=== PATIENT | male | born 1965 | race Caucasian/White ===

== ENCOUNTER → 2017-10-05 10:02 | Outpatient (CLI) | payer OTHER, SELFPAY ==
[2017-10-05 11:38] LABS: PSA,Total - Annual Screen 1.47 ng/mL (0.00-4.00)
== END ==
PROVIDERS: Family Provider Family Medicine; PCP Family Medicine; Visit Provider Nurse Practitioner Adult Health
DX: Z12.5 Encounter for screening for malignant neoplasm of prostate (principal)
CPT/HCPCS: 36415; 84153; G0103

== ENCOUNTER → 2017-10-25 17:32 | Outpatient (CLI) | payer OTHER, SELFPAY ==
--- NOTE | 2017-10-25 17:34 | CT_ITS ---
STUDY: CT ABDOMEN AND PELVIS WITHOUT CONTRAST REASON FOR EXAM: Male, 52 years old. Microhematuria RADIATION DOSAGE (If Supplied By Facility): CTDIvol = ( 14.68 ) mGy, DLP = ( 812.04 ) mGycm TECHNIQUE: Transaxial images were obtained from the dome of the diaphragm to the symphysis pubis without oral contrast, and without intravenous contrast. Sagittal and coronal images were reconstructed. Individualized dose optimization techniques were used for this CT. COMPARISON: February 05, 2017. FINDINGS: The visualized lung bases are unremarkable. The visualized portions of the heart are within normal limits. Normal liver. Normal gallbladder and extrahepatic biliary system. Normal spleen. Normal pancreas. Normal bilateral adrenal glands. Normal right kidney. Probable cortical cyst lesion measuring 1 cm with rim calcification is noted in the left kidney. No renal stones or hydronephrosis bilaterally. Normal visualized stomach. Normal small intestine. Mild diverticulosis of the colon. The appendix is visualized and appears normal. Calcified abdominal aorta. Normal inferior vena cava. Subcentimeter nodes in the retroperitoneum. Normal urinary bladder. The prostate is 4.6 x 5.8 cm. Normal abdominal wall. Normal osseous structures. CT/Abdomen/Pelvis without Cont IMPRESSION: Slightly prominent prostate. No renal stones or hydronephrosis bilaterally. Probable left renal cortical cystic lesion with peripheral calcification. Colonic diverticulosis. Electronically Signed: Miquel Candelario DO at 19:50 EDT Tel [phone], Service support ,
== END ==
PROVIDERS: Family Provider Family Medicine; PCP Family Medicine; Visit Provider Urology
DX: R31.9 Hematuria, unspecified (principal)
CPT/HCPCS: 74176

== ENCOUNTER → 2017-10-31 16:23 | Outpatient (CLI) | payer OTHER, SELFPAY ==
[2017-10-31 17:58] LABS: Hemoglobin 14.8 g/dl (13.0-16.5); Red Blood Count 4.78 M/mm3 (4.6-6.2); White Blood Count 6.6 K/mm3 (4.4-11.0)
[2017-10-31 17:59] LABS: Absolute Lymphocyte Count 1.65 X10^3/ul (0.83-4.51); Absolute Neutrophil Count 4.1 X10^3/uL (2.0-7.7); Basophil% 0.3 % (0-1); Eosinophil# 0.09 X10^3/uL; Eosinophils% 1.4 % (0-5); Hematocrit 42.7 % (40-54); Lymphocyte # 1.65 X10^3/ul (4.0); Lymphocyte % 25.1 % (19-41); Mean Corp Hgb Conc 34.7 g/gl (32-36); Mean Corpuscular Volume 89.3 fL (80-94); Mean Platelet Vol. 11.1 fl (6.2-12.0); Monocyte# 0.74 X10^3/uL; Monocyte% 11.2 % (0-10); Neutrophil # 4.07 X10^3/uL (2.7-7.7); Neutrophil % 61.8 % (47-70); POSITIVE COUNT NO; POSITIVE DIFFERENTIAL NO; POSITIVE MORPHOLOGY NO; Platelet Count 228 K/mm3 (150-450); RBC Distribution Width CV 12.6 % (11.6-14.6)
[2017-10-31 18:00] LABS: Basophil# 0.02 X10^3/uL
== END ==
PROVIDERS: Family Provider Family Medicine; PCP Family Medicine; Visit Provider Ophthalmology
DX: H35.61 Retinal hemorrhage, right eye (principal); E03.9 Hypothyroidism, unspecified
CPT/HCPCS: 36415; 85025

== ENCOUNTER → 2017-12-02 16:35 | Outpatient (CLI) | payer OTHER, SELFPAY ==
[2017-12-02 18:05] LABS: AST(SGOT) 15 U/L (15-37); Alanine Aminotransfer ALT/SGPT 25 U/L (16-61); Albumin, Serum 3.9 g/dL (3.2-5.0); Alkaline Phosphatase 65 U/L (45-117); Anion Gap 9 (5-15); BUN 21 mg/dL (7-18); BUN/Creat Ratio 18.4 RATIO (10-20); Calcium,Total 8.8 mg/dL (8.5-10.1); Chloride 104 mmol/L (98-107); Creatinine, Serum 1.14 mg/dL (0.70-1.30); EST Glomerular Filtration Rate 72 mL/min (>60); Est Glom Filt Rate - Afr Amer 87 mL/min (>60); Free T3 3.6 pg/mL (2.18-3.98); Glucose 103 mg/dL (74-106); Potassium 3.9 mmol/L (3.5-5.1); Protein, Total 7.9 g/dL (6.4-8.2); Sodium Level 140 mmol/L (136-145); T4 Free Direct 0.53 ng/dL (0.76-1.46)
[2017-12-02 18:30] LABS: Vitamin B12 772 pg/mL (211-911)
[2017-12-05 16:10] LABS: Endomysial Antibody IgA Negative (Negative)
[2017-12-06 12:29] LABS: Immunoglobulin A 218 mg/dL (90-386); t-Transglutaminase IgA <2 U/mL (0-3)
== END ==
PROVIDERS: Family Provider Family Medicine; PCP Family Medicine; Visit Provider Nurse Practitioner
DX: R53.82 Chronic fatigue, unspecified (principal); R53.81 Other malaise
CPT/HCPCS: 36415; 80053; 82607; 82784; 83516; 84439; 84443; 84481; 86255

== ENCOUNTER → 2017-12-26 15:43 | Outpatient (CLI) | payer OTHER, SELFPAY ==
--- NOTE | 2017-12-26 15:43 | DT_ITS ---
This patient was seen during an EMR downtime December 19, 2017 - December 26, 2017. This patient may have a combination of paper and electronic documentation or all paper documentation. All documentation is viewable within the e-chart portion of [employer] for each patient visit.
[2017-12-26 16:39] LABS: Absolute Lymphocyte Count 1.46 X10^3/ul (0.83-4.51); Absolute Neutrophil Count 3.7 X10^3/uL (2.0-7.7); Basophil# 0.03 X10^3/uL; Basophil% 0.5 % (0-1); Eosinophil# 0.05 X10^3/uL; Eosinophils% 0.9 % (0-5); Hematocrit 40.8 % (40-54); Lymphocyte # 1.46 X10^3/ul (4.0); Lymphocyte % 25.2 % (19-41); Mean Corp Hgb Conc 34.3 g/gl (32-36); Mean Corpuscular Hgb 30.6 pg (27.0-32.0); Mean Corpuscular Volume 89.1 fL (80-94); Mean Platelet Vol. 11.3 fl (6.2-12.0); Monocyte# 0.53 X10^3/uL; Monocyte% 9.2 % (0-10); Neutrophil # 3.71 X10^3/uL (2.7-7.7); Platelet Count 230 K/mm3 (150-450); RBC Distribution Width CV 12.9 % (11.6-14.6); RBC Distribution Width SD 41.6 fl (35.1-43.9); Red Blood Count 4.58 M/mm3 (4.6-6.2); White Blood Count 5.8 K/mm3 (4.4-11.0)
[2017-12-26 16:43] LABS: POSITIVE COUNT NO; POSITIVE DIFFERENTIAL NO; POSITIVE MORPHOLOGY NO
[2017-12-26 16:44] LABS: Erythrocyte Sedimentation Rate 18 mm/hr (0-20)
[2017-12-26 17:42] LABS: AST(SGOT) 15 U/L (15-37); Alanine Aminotransfer ALT/SGPT 23 U/L (16-61); Albumin, Serum 3.8 g/dL (3.2-5.0); Alkaline Phosphatase 60 U/L (45-117); Anion Gap 8 (5-15); BUN 22 mg/dL (7-18); BUN/Creat Ratio 18.6 RATIO (10-20); Bilirubin, Direct 0.08 mg/dL (0.00-0.30); CRP 4.45 mg/L (0.0-3.0); Calcium,Total 8.7 mg/dL (8.5-10.1); Chloride 107 mmol/L (98-107); Creatinine, Serum 1.18 mg/dL (0.70-1.30); EST Glomerular Filtration Rate 69 mL/min (>60); Est Glom Filt Rate - Afr Amer 83 mL/min (>60); Ferritin 105 ng/mL (26-388); Globulin 3.7 g/dL (2.2-4.2); Glucose 95 mg/dL (74-106); Iron 56 ug/dL (65-175); Potassium 3.8 mmol/L (3.5-5.1); Protein, Total 7.5 g/dL (6.4-8.2); Rheumatoid Factor < 10.0 IU/mL (<15); Sodium Level 142 mmol/L (136-145); Uric Acid 4.8 mg/dL (3.5-7.2)
[2017-12-26 17:48] LABS: HIV - WCH Non-Reactive (Nonreactive); Vitamin B12 606 pg/mL (211-911)
[2017-12-30 18:11] LABS: ANTINUCLEAR ANTIBODIES DIRECT Negative (Negative)
[2018-01-02 20:09] LABS: HEPATITIS B SURFACE AG Negative (Negative)
[2018-01-03 15:35] LABS: Hep B Surface Antibodies Reactive (.); Hep C Antibodies <0.1 s/co ratio (0.0-0.9); Hepatitis B Core Ab Total Negative (Negative)
== END ==
PROVIDERS: Family Provider Family Medicine; PCP Family Medicine; Visit Provider Dermatology
DX: M25.50 Pain in unspecified joint (principal); R53.83 Other fatigue; Z79.899 Other long term (current) drug therapy
CPT/HCPCS: 36415; 80053; 82175; 82248; 82607; 82728; 82746; 83540; 83655; 83825; 84550; 85025; 85652; 86038; 86140; 86431; 86480; 86703; 86704; 86706; 86803; 87340

== ENCOUNTER → 2018-06-19 06:59 | Outpatient (CLI) | payer OTHER, SELFPAY ==
[2018-06-19 08:18] LABS: Glucose GTT-30 minutes 137 mg/dL (110-170)
[2018-06-19 08:18] LABS: Glucose GTT- Fasting 95 mg/dL (74-106)
[2018-06-19 09:45] LABS: Glucose GTT- 1 Hour 90 mg/dL (120-170)
[2018-06-19 09:54] LABS: Glucose GTT- 2 Hour 80 mg/dL (70-120)
[2018-06-19 11:16] LABS: Glucose GTT- 3 Hour 83 mg/dL (74-106)
[2018-06-19 12:50] LABS: Glucose GTT- 4 Hour 87 mg/dL (74-106)
[2018-06-19 12:50] LABS: Glucose GTT- 5 Hour 95 mg/dL (74-106)
--- OUTSIDE RECORDS SUMMARY | 2018-08-12 04:58 | XMS RPT_ITS ---
:1965 Author Organization OHIP Support Name Relationship Address Phone CHRIS, DEIRDRE Unavailable [address] + [place] [address] BODNARIK, GUSTAVO Unavailable [address] + [place] [address] TRICOBD Unavailable [address] + [place] [address] BODNARIK, DEIRDRE Unavailable [address] + [place] [address] BODNARIK, GUSTAVO Unavailable [address] + [place] [address] [employer] Unavailable [address] + [place] [address] BODNARIK, DEIRDRE Unavailable [address] + [place] [address] BODNARIK, GUSTAVO Unavailable [address] + [place] [address] [employer] Unavailable [address] + [place] [address] BODNARIK, DEIRDRE Unavailable [address] + [place] [address] BODNARIK, GUSTAVO Unavailable [address] + [place] [address] [employer]ICO[employer] Unavailable [address] + [place] [address] BODNARIK, DEIRDRE Unavailable [address] + [place] [address] BODNARIK, GUSTAVO Unavailable [address] + [place] [address] TRICO[facility] Unavailable [address] + [place] [address] BODNARIK, DEIRDRE Unavailable [address] + [place] [address] GUSTAVO PEREZ Unavailable [address] + [place] [address] [employer] Unavailable [address] + [place] [address] TATA TEMPLE Unavailable [address] + [place] [address] [employer]ICO[employer] Unavailable [address] + [place] [address] TATA TEMPLE Unavailable [address] + [place] [address] TRICO[facility] Unavailable [address] + [place] [address] Care Team Providers Name Role Phone Sameera Phillips Attending Unavailable Sameera Phillips Referring Unavailable [facility] Unavailable Roberth Amezquita Attending Unavailable [facility] Unavailable Lisset Benjamin Attending Unavailable Lisset Benjamin Referring Unavailable [place] Unavailable Angeli Ocasio [employer]ADDLE BUG DRIVER-C Attending Unavailable Anca, Christcodie Referring Unavailable [facility] Unavailable Angeli Ocasio [employer]ADDLE BUG DRIVER-C Attending Unavailable Angeli Ocasio STRADDLE BUG DRIVER-C Referring Unavailable [facility] Unavailable Martínez Benjamin Attending Unavailable Martínez Benjamin Referring Unavailable [place] Unavailable Matthew March Attending Unavailable [place] Unavailable Yaw Marcher Attending Unavailable Anca, Christopher Referring Unavailable [facility] Unavailable PROBLEMS PROBLEMS DATE TYPE CONDITION / CODE ATTENDING STATUS SOURCE 01/12/2018 Unknown M25.50 - Pain in Martínez Benjamin Active [place] unspecified joint Community / M25.50(ICD-10) Hospital Repository 01/12/2018 Unknown 719.49 - Pain in Marcia Martínez Active [facility] joint, multiple Community sites / Hospital 719.49(ICD-9) Repository 01/12/2018 Unknown R53.83 - Other Martínez Benjamin Active [place] fatigue / Community R53.83(ICD-10) Hospital Repository 01/12/2018 Unknown 780.79 - Other Martínez Benjamin Active [place] malaise and Community fatigue / Hospital 780.79(ICD-9) Repository 12/02/2017 Unknown R53.82 - Chronic Angeli Ocasio Active [place] fatigue, [employer] DR[employer]-C Community unspecified / Hospital R53.82(ICD-10) Repository 12/02/2017 Unknown R53.81 - Other Angeli Ocasio Active [facility] malaise / [employer] DRIVER-C Community R53.81(ICD-10) Hospital Repository 10/31/2017 Unknown H35.61 - Retinal Lisset Benjamin Active [facility] hemorrhage, right [facility] eye / Hospital H35.61(ICD-10) Repository 10/25/2017 Unknown R31.9 - AlirioRoberth posada Active [facility] Hematuria, Wood [facility] unspecified / Hospital R31.9(ICD-10) Repository 10/05/2017 Unknown Z12.5 - Encounter Sameera Phillips Active [place] for screening for M [facility] Hospital neoplasm of Repository prostate / Z12.5(ICD-10) PROCEDURES PROCEDURES No Procedure Records FoundRESULTS RESULTS 5 HR GLUCOSE TOLERANCE Collected: 06/19/2018 Status: F Source: [place] TEST 7:15 AM [facility] REPOSITORY Order Comment: Is Patient Fasting? Y TYPE CODE TESTS RESULT OUT OF RANGE REFERENCE UNITS LAB L501.0520 74-106 mg/dL Normal GLU 95 GTT-FASTING Result Comment: GLUCOSE TOLERANCE TEST Reference Interval Non- Adults Fasting 74 - 106 30 minutes 110 - 170 1 hour 120 - 170 2 hour 74 - 120 3 hour 74 - 106 4 hour 74 - 106 5 hour 74 - 106 LAB L501.0630 110-170 mg/dL Normal GLU GTT-30 min. 137 LAB L501.0540 120-170 mg/dL Low GLU GTT-1 HOUR 90 LAB L501.0550 70-120 mg/dL Normal GLU GTT-2 HOUR 80 LAB L501.0560 74-106 mg/dL Normal GLU GTT-3 HOUR 83 LAB L501.0570 74-106 mg/dL Normal GLU GTT-4 HOUR 87 LAB L501.0580 74-106 mg/dL Normal GLU GTT-5 HOUR 95 Performed By: #### L500.4900 #### [facility] [place], [address] OFFICE VISIT Observed: 02/22/2018 Status: UNK Source: [place] 10:38 AM [facility] REPOSITORY Chief Complaint Endocrine consult - Thyroid - Self Referred History of Present Illness 52-year-old self referred for evaluation of hypothyroidism. Patient states he was diagnosed with hypothyroidism 2 years ago and was put on liothyronine 25 g. He has never been on Synthroid or levothyrox ine. Dose was discontinued approximately 3 months ago when he saw a nurse practitioner for an patient assistant and was told that he was on too much medicine. Over this time. Over the last 2 years and joel laila he has battled with fatigue and sleep disturbance and on and off leg and joint pains. He does have sleep apnea and is compliant with his C Pap. He has a long history of hypothyroidism and multiple f emale family members. He also himself has psoriasis but is never seen a mold carrier. He is also been diagnosed with Lyme disease twice in his life and both times was incapacitated with fatigue. Proxi reyes one year ago he was in the hospital for infection and had elevated thyroid levels at that time as well as atrial fibrillation. His dose was not decreased.He denies any chest pain, shortness of jun ath, nausea, vomiting, diarrhea, constipation, fevers or chills. Review of Systems Comprehensive review systems otherwise negative Active Problems Depression (311) (F32.9) Hypothyroidism (244.9) (E03.9) Psoriasis (696.1) (L40.9) Past Medical History History of Mononucleosis (075) (B27.90) Surgical History History of Inguinal Hernia Repair History of Knee Surgery Social History Never a smoker Never smoker No alcohol use Single Allergies Amoxicillin CAPS Recorded By: Leona Bautista; 02/22/2018 8:06:20 AM Current Meds Fluticasone Propionate 50 MCG/ACT Nasal Suspension; Therapy: [id number] to Recorded Dispense: 30 Days ; #:16 SUSP; Refill: 0; PHILIP = N; Record; Last Updated By: Leona Bautista; 02/22/2018 7:53:16 AM Tremfya 100 MG/ML Subcutaneous Solution Prefilled Syringe; INJECT 100MG UNDER THE SKIN AT WEEK 0, WEEK 4, AND EVERY 8 WEEKS THERE; Therapy: [id number] to Recorded Rx By: MARCIA; Dispense: 56 Days ; #:1 SOSY; Refill: 0; PHILIP = N; Record; Last Updated By: Leona Bautista; 02/22/2018 7:53:16 AM Vitals Vital Signs Recorded: 22Feb2018 08:07AM Hopwioectht17.4 F Heart Rate74 Owwtjhqe596 Hekanlqne89 Height6 ft 2 in Ejgbuu625 lb 4 oz BMI Rxsiysykmp01.13 BSA Calculated2.39 Physical Exam CONSTITUTIONAL: Overweight male in no acute distress HEENT: Moist mucus membranes. Eyes: no proptosis, no lid lag, no lid retraction NECK: Normal thyroid gland. No cervical lymphadenopathy CHEST: Clear to auscultation bilaterally HEART: Regular rate and rhythm. No murmurs, rubs, or gallops ABDOMEN: Benign SKIN: Normal EXT: No clubbing, cyanosis, edema NEUROLOGIC: Normal reflexes bilaterally, no tremor Diagnoses/Problems Hypothyroidism (244.9) (E03.9) Orders Hypothyroidism Antithyroid Perox. Ab; Source:Blood (D); Status:Active; Requested for:22Feb2018; Perform:Lab Services - Lab To Draw (Blood Test); Due:23May2018;Ordered; For:Hypothyroidism; Ordered By:Nelida Villeda; T3 - Free Triiodothyronine, Serum; Source:Blood (D); Status:Active; Requested for:22Feb2018; Perform:Lab Services - Lab To Draw (Blood Test); Due:23May2018;Ordered; For:Hypothyroidism; Ordered By:Nelida Villeda; T4 - Free Thyroxine, Serum; Source:Blood (D); Status:Active; Requested for:22Feb2018; Perform:Lab Services - Lab To Draw (Blood Test); Due:23May2018;Ordered; For:Hypothyroidism; Ordered By:Nelida Villeda; TSH - Thyroid Stimulating Hormone, Serum; Source:Blood (D); Status:Active; Requested for:22Feb2018; Perform:Lab Services - Lab To Draw (Blood Test); Due:23May2018;Ordered; For:Hypothyroidism; Ordered By:Nelida Villeda; Provider Impressions 52-year-old here for evaluation of hypothyroidism. Discussed his history in detail. Discussed thyroid replacement and the advantages of using Synthroid or levothyroxine rather than just T3. We will star t over with complete thyroid levels today and the Daniel's antibody. I also recommended seeing a mold carrier and a sleep specialist. I will see him back in 2 months. He is to call with concerns Patient Discussion/Summary Thyroid blood work today Plan based on results Consider seeing a mold carrier and sleep specialist Call with concerns or questions. End of Encounter Meds Fluticasone Propionate 50 MCG/ACT Nasal Suspension; Therapy: 13May2017 to Recorded Tremfya 100 MG/ML Subcutaneous Solution Prefilled Syringe; INJECT 100MG UNDER THE SKIN AT WEEK 0, WEEK 4, AND EVERY 8 WEEKS THERE; Therapy: 06Dec2017 to Recorded Signatures Electronically signed by : Nelida Villeda MD; Feb 22 2018 10:38AM EST (Author) DOWNTIME REPORT Observed: 01/05/2018 Status: F Source: [place] 2:16 PM [facility] REPOSITORY [facility] Medical Records Department [address] [place] [address] Downtime Report MR#: [id number] Acct: [id number] Name: DEYA LAW Loreta Rep #: [id number] : 1965 52 From: [place] PCP: Matthew March MD Status: REG CLI This patient was seen during an EMR downtime December 19, 2017 - December 26, 2017. This patient may have a combination of paper and electronic documentation or all paper documentation. All documentation is viewable within the e-chart portion of [facility] for each patient visit. CBC W/DIFF, AUTOMATED Collected: 12/26/2017 Status: F Source: [place] 3:49 PM [facility] REPOSITORY Order Comment: Order Date: 12/18/17 Order Info: [id number] - SED TYPE CODE TESTS RESULT OUT OF RANGE REFERENCE UNITS LAB L100.1000 4.4-11.0 K/mm3 Normal WBC 5.8 LAB L100.1200 4.6-6.2 M/mm3 Low RBC 4.58 LAB L100.1300 13.0-16.5 g/dl Normal HGB 14.0 LAB L100.1400 40-54 % Normal HCT 40.8 LAB L100.1500 80-94 fL Normal MCV 89.1 LAB L100.1600 27.0-32.0 pg Normal MCH 30.6 LAB L100.1700 32-36 g/gl Normal MCHC 34.3 LAB L100.1810 11.6-14.6 % Normal RDW CV 12.9 LAB L100.1820 35.1-43.9 fl Normal RDW SD 41.6 LAB L100.1900 150-450 K/mm3 Normal PLT 230 LAB L100.2000 6.2-12.0 fl Normal MPV 11.3 LAB L100.2100 47-70 % Normal NEUT% 64.0 LAB L100.2200 19-41 % Normal LY% 25.2 LAB L100.2300 0-10 % Normal MONO% 9.2 LAB L100.2400 0-5 % Normal EO% 0.9 LAB L100.2500 0-1 % Normal BASO% 0.5 LAB L100.2550 0.0-0.9 % Normal IM GRAN % 0.200 Result Comment: IG% - Immature Granulocytes (promyelocytes, myelocytes and metamyelocytes) > 1% indicates that a LEFT SHIFT is Present. LAB L100.2620 2.0-7.7 X10 3/uL Normal Absolute Neut 3.7 LAB L100.2720 0.83-4.51 X10 3/ul Normal Absolute Lymph 1.46 Performed By: #### L100.0100 #### [facility] [address] [place], [place], [id number] ERYTHROCYTE SED RATE Collected: 12/26/2017 Status: F Source: [place] 3:49 PM [facility] REPOSITORY Order Comment: Order Date: 12/18/17 Order Info: 21831-3 - SED TYPE CODE TESTS RESULT OUT OF RANGE REFERENCE UNITS LAB L102.0000 0-20 mm/hr Normal SED RATE 18 Performed By: #### L101.9900, L500.4050, L501.1400, L503.6150, L503.6550, L505.7010, L506.0250, L503.0105, L3890.6005 #### [facility] [address] [place], [address] #### L3100.5475, L3100.0625 #### [facility] (refer to report for specific site) refer to report for address and phone number COMPREHENSIVE METABOLIC Collected: 12/26/2017 Status: F Source: [place] 3:49 PM [facility] REPOSITORY Order Comment: Order Date: 12/18/17 Order Info: [id number] - CMP Order Info: 3084-1 - URIC Order Info: 2498-4 - FE Order Info: 2276-4 - ROM Order Info: 03997-9 - RA Order Info: 2284-8 - FOLS SEND RESULTS TO ALSO Is Patient Taking Vitamins or Folic Acid Supplements? N TYPE CODE TESTS RESULT OUT OF RANGE REFERENCE UNITS LAB L501.0100 74-106 mg/dL Normal GLU 95 Result Comment: Please note revised GLUCOSE reference range effective 2017. LAB L501.1000 7-18 mg/dL High BUN 22 LAB L501.1100 0.70-1.30 mg/dL Normal CREAT,SERUM 1.18 Result Comment: The validity of the calculated GFR AND GFRAA in patients over 70 years has not been determined. Clinical correlation is essential. LAB L501.1110 >60 mL/min Normal EST GFR 69 Result Comment: Non- GFR Calc LAB L501.1115 >60 mL/min Normal EST GFR - AA 83 Result Comment: GFR Calc LAB L501.1300 10-20 RATIO Normal BUN/CRE 18.6 LAB L501.1500 6.4-8.2 g/dL T Normal PROT 7.5 LAB L501.1800 3.2-5.0 g/dL Normal ALB 3.8 LAB L501.1950 2.2-4.2 g/dL Normal GLOB 3.7 LAB L501.2000 0.9-2.4 RATIO Normal A/G 1.0 LAB L501.2200 8.5-10.1 mg/dL CA Normal 8.7 LAB L501.4100 15-37 U/L Normal AST 15 LAB L501.4305 45-117 U/L Normal ALK P 60 LAB L501.4405 16-61 U/L Normal ALT 23 LAB L501.4600 0.20-1.00 mg/dL T Normal BILI 0.40 LAB L501.5300 136-145 mmol/L NA Normal 142 LAB L501.5600 3.5-5.1 mmol/L K Normal 3.8 LAB L501.5900 98-107 mmol/L CL Normal 107 LAB L501.6100 21.0-32.0 mmol/L Normal CO2 27.0 LAB L501.6200 5-15 Normal GAP 8 Performed By: #### L101.9900, L500.4050, L501.1400, L503.6150, L503.6550, L505.7010, L506.0250, L503.0105, L3890.6005 #### [facility] [address] [place], [address] #### L3100.5475, L3100.0625 #### [facility] (refer to report for specific site) refer to report for address and phone number URIC ACID Collected: 12/26/2017 Status: F Source: [place] 3:49 PM [facility] REPOSITORY Order Comment: Order Date: 12/18/17 Order Info: 0786- - CMP Order Info: 3084- - URIC Order Info: [id number] - FE Order Info: 2275-10 - ROM Order Info: 13768-2 - RA Order Info: 2284-8 - FOLS SEND RESULTS TO ALSO Is Patient Taking Vitamins or Folic Acid Supplements? N TYPE CODE TESTS RESULT OUT OF RANGE REFERENCE UNITS LAB L501.1400 3.5-7.2 mg/dL Normal URIC 4.8 Result Comment: The drugs N-Acetylcysteine and Metamizole may falsely depress this assay. Performed By: #### L101.9900, L500.4050, L501.1400, L503.6150, L503.6550, L505.7010, L506.0250, L503.0105, L3890.6005 #### [facility] [address] [place], [place], [id number] #### L3100.5475, L3100.0625 #### [facility] (refer to report for specific site) refer to report for address and phone number IRON Collected: 12/26/2017 Status: F Source: [place] 3:49 PM [facility] REPOSITORY Order Comment: Order Date: 12/18/17 Order Info: [id number] - CMP Order Info: 308- - URIC Order Info: [id number] - FE Order Info: 2275-10 - ROM Order Info: [id number] - RA Order Info: 2284-8 - FOLS SEND RESULTS TO ALSO Is Patient Taking Vitamins or Folic Acid Supplements? N TYPE CODE TESTS RESULT OUT OF RANGE REFERENCE UNITS LAB L503.6150 65-175 ug/dL Low IRON 56 Performed By: #### L101.9900, L500.4050, L501.1400, L503.6150, L503.6550, L505.7010, L506.0250, L503.0105, L3890.6005 #### [facility] [address] [place], [address] #### L3100.5475, L3100.0625 #### [facility] (refer to report for specific site) refer to report for address and phone number FERRITIN Collected: 12/26/2017 Status: F Source: [place] 3:49 PM [facility] REPOSITORY Order Comment: Order Date: 12/18/17 Order Info: [id number] - CMP Order Info: 3084-1 - URIC Order Info: 2498-4 - FE Order Info: 2276-4 - ROM Order Info: 64999-6 - RA Order Info: 2284-8 - FOLS SEND RESULTS TO ALSO Is Patient Taking Vitamins or Folic Acid Supplements? N TYPE CODE TESTS RESULT OUT OF RANGE REFERENCE UNITS LAB L503.6550 26-388 ng/mL Normal FERRITIN 105 Performed By: #### L101.9900, L500.4050, L501.1400, L503.6150, L503.6550, L505.7010, L506.0250, L503.0105, L3890.6005 #### [facility] [address] [place], [address] #### L3100.5475, L3100.0625 #### [facility] (refer to report for specific site) refer to report for address and phone number RHEUMATOID FACTOR Collected: 12/26/2017 Status: F Source: [place] 3:49 PM [facility] REPOSITORY Order Comment: Order Date: 12/18/17 Order Info: [id number] - CMP Order Info: 3084-1 - URIC Order Info: [id number] - FE Order Info: 2275-10 - ROM Order Info: [id number] - RA Order Info: 2288 - FOLS SEND RESULTS TO ALSO Is Patient Taking Vitamins or Folic Acid Supplements? N TYPE CODE TESTS RESULT OUT OF RANGE REFERENCE UNITS LAB L505.7010 <15 IU/mL Normal RHEUMATOID FAC < 10.0 Performed By: #### L101.9900, L500.4050, L501.1400, L503.6150, L503.6550, L505.7010, L506.0250, L503.0105, L3890.6005 #### [facility] [address] [place], [address] #### L3100.5475, L3100.0625 #### [facility] (refer to report for specific site) refer to report for address and phone number FOLATES, (FOLIC ACID) Collected: 12/26/2017 Status: F Source: [place] 3:49 PM [facility] REPOSITORY Order Comment: Order Date: 12/18/17 Order Info: [id number] - CMP Order Info: 3084-1 - URIC Order Info: [id number] - Order Info: 2275-10 - ROM Order Info: [id number] - RA Order Info: 228-8 - FOLS SEND RESULTS TO ALSO Is Patient Taking Vitamins or Folic Acid Supplements? N TYPE CODE TESTS RESULT OUT OF RANGE REFERENCE UNITS LAB L506.0250 3.1-55.4 ng/mL Normal FOLATES 24.90 Performed By: #### L101.9900, L500.4050, L501.1400, L503.6150, L503.6550, L505.7010, L506.0250, L503.0105, L3890.6005 #### [facility] [address] [place], [address] #### L3100.5475, L3100.0625 #### [facility] (refer to report for specific site) refer to report for address and phone number VITAMIN B12 Collected: 12/26/2017 Status: F Source: [place] 3:49 PM [facility] REPOSITORY Order Comment: Order Date: 12/18/17 Order Info: 2132-9 - B12 Order Info: 0197-1 - VIAB TYPE CODE TESTS RESULT OUT OF RANGE REFERENCE UNITS LAB L503.0105 211-911 pg/mL Normal Vitamin B12 606 Performed By: #### L101.9900, L500.4050, L501.1400, L503.6150, L503.6550, L505.7010, L506.0250, L503.0105, L3890.6005 #### [facility] [address] [facility] [place], [place], [id number] #### L3100.5475, L3100.0625 #### [facility] (refer to report for specific site) refer to report for address and phone number HIV - [facility] Collected: 12/26/2017 Status: F Source: [place] 3:49 PM [facility] REPOSITORY Order Comment: Order Date: 12/18/17 Order Info: 2132-9 - B12 Order Info: 0197-1 - VIAB TYPE CODE TESTS RESULT OUT OF RANGE REFERENCE UNITS LAB L3890.6005 Nonreactive Normal HIV - H Non-Reactive Performed By: #### L101.9900, L500.4050, L501.1400, L503.6150, L503.6550, L505.7010, L506.0250, L503.0105, L3890.6005 #### [facility] [address] [facility] [place], [place], [id number] #### L3100.5475, L3100.0625 #### [facility] (refer to report for specific site) refer to report for address and phone number ANTINUCLEAR ANTIBODIES Collected: 12/26/2017 Status: F Source: [place] DIRECT 3:49 PM [facility] REPOSITORY Order Comment: Order Date: 12/18/17 Order Info: 0270-1 - ISIDRO Specimen Comment: A duplicate report has been generated due to demographic Specimen Comment: updates. TYPE CODE TESTS RESULT OUT OF RANGE REFERENCE UNITS LAB L3100.5475 Negative Normal Negative ISIDRO-DIRECT Result Comment: Performed at: [address] [id number] [employer]pper: Adonis Tomlinson PhD, Phone: [phone] Performed By: #### L101.9900, L500.4050, L501.1400, L503.6150, L503.6550, L505.7010, L506.0250, L503.0105, L3890.6005 #### [facility] [address] [place], [address] #### L3100.5475, L3100.0625 #### [facility] (refer to report for specific site) refer to report for address and phone number HEPATITIS C ANTIBODIES Collected: 12/26/2017 Status: F Source: [place] 3:49 PM [facility] REPOSITORY Order Comment: Order Date: 12/18/17 Order Info: 0363-1 - HECAB Order Info: 0538-1 - HMETB TYPE CODE TESTS RESULT OUT OF RANGE REFERENCE UNITS LAB L3100.0650 0.0-0.9 s/co ratio Normal HEP C AB <0.1 Result Comment: Negative: < 0.8 Indeterminate: 0.8 - 0.9 Positive: > 0.9 The CDC recommends that a positive HCV antibody result be followed up with a HCV Nucleic Acid Amplification test (674347). Performed By: #### L101.9900, L500.4050, L501.1400, L503.6150, L503.6550, L505.7010, L506.0250, L503.0105, L3890.6005 #### [facility] [address] [place], [address] #### L3100.5475, L3100.0625 #### [facility] (refer to report for specific site) refer to report for address and phone number BILIRUBIN, DIRECT Collected: 12/26/2017 Status: F Source: [place] 3:49 PM [facility] REPOSITORY Order Comment: Order Date: 12/18/17 Order Info: [id number] - CMP Order Info: 3084-1 - URIC Order Info: 2498-4 - FE Order Info: 2276-4 - ROM Order Info: [id number] - RA Order Info: 2284-8 - FOLS SEND RESULTS TO ALSO Is Patient Taking Vitamins or Folic Acid Supplements? N TYPE CODE TESTS RESULT OUT OF RANGE REFERENCE UNITS LAB L501.4700 0.00-0.30 mg/dL Normal D BILI 0.08 Performed By: #### L501.4700, L501.6710 #### [facility] [address] [place], [address] CRP Collected: 12/26/2017 Status: F Source: [place] 3:49 PM [facility] REPOSITORY Order Comment: Order Date: 12/18/17 Order Info: [id number] - CMP Order Info: 3084-1 - URIC Order Info: [id number] - FE Order Info: 2276-4 - ROM Order Info: [id number] - RA Order Info: 2284-8 - FOLS SEND RESULTS TO ALSO Is Patient Taking Vitamins or Folic Acid Supplements? N TYPE CODE TESTS RESULT OUT OF RANGE REFERENCE UNITS LAB L501.6710 0.0-3.0 mg/L High 4.45 C-REACTIVE PROT Result Comment: C-Reactive Protein (CRP) provides useful information for the diagnosis, therapy and monitoring of inflammatory processes and associated diseases. For the evaluation of Relative Risk for Cardiovascular Disease, a High Sensitivity CRP (HSCRP) should be ordered. Performed By: #### L501.4700, L501.6710 #### [facility] [address] [place], [address] HEPATITIS B SURFACE Collected: 12/26/2017 Status: F Source: [place] AG 3:49 PM [facility] REPOSITORY Order Comment: Order Date: 12/18/17 Order Info: 0363-1 - HECAB Order Info: 0538-1 - HMETB TYPE CODE TESTS RESULT OUT OF RANGE REFERENCE UNITS LAB L3100.0400 Negative Normal HB Negative SURF AG Performed By: #### L3100.0390, L3100.0460, L3100.0528, L3400.7000 #### [facility] (refer to report for specific site) refer to report for address and phone number HEPATITIS B CORE AB Collected: 12/26/2017 Status: F Source: [place] TOTAL 3:49 PM [facility] REPOSITORY Order Comment: Order Date: 12/18/17 Order Info: 0363-1 - HECAB Order Info: 0538-1 - HMETB TYPE CODE TESTS RESULT OUT OF RANGE REFERENCE UNITS LAB L3100.0460 Negative Normal HEP B Negative CORE,TOT Result Comment: Performed at: - [facility] [id number] [employer]pper: Adonis Tomlinson PhD, Phone: [phone] Performed By: #### L3100.0390, L3100.0460, L3100.0528, L3400.7000 #### [facility] (refer to report for specific site) refer to report for address and phone number HEP B SURFACE Collected: 12/26/2017 Status: F Source: ERIN ANTIBODIES 3:49 PM [facility] [place] REPOSITORY Order Comment: Order Date: 12/18/17 Order Info: 0363-1 - HECAB Order Info: 0538-1 - HMETB TYPE CODE TESTS RESULT OUT OF RANGE REFERENCE UNITS LAB L3100.0528 . Normal Hep B Reactive Joie AB Result Comment: Non Reactive: Inconsistent with immunity, less than 10 mIU/mL Reactive: Consistent with immunity, greater than 9.9 mIU/mL Performed By: #### L3100.0390, L3100.0460, L3100.0528, L3400.7000 #### [facility] (refer to report for specific site) refer to report for address and phone number QUANTIFERON TB-GOLD Collected: 12/26/2017 Status: F Source: ERIN 3:49 PM [facility] [place] REPOSITORY Order Comment: Order Date: 12/18/17 Order Info: [id number] - HECAB Order Info: 0538-1 - HMETB TYPE CODE TESTS RESULT OUT OF RANGE REFERENCE UNITS LAB L3400.7025 Normal QFT TB GOLD Result Comment: TEST RESULT UNITS REF INTERVAL QuantiFERON Client Incubated QuantiFERON TB Gold Negative Negative The specimen received for QuantiFERON testing was incubated by the ordering institution. Specific procedures outlined in our Directory of Services and in the package insert for the QuantiFERON Gold (In Tube) test must be followed to enable for proper stimulation of cells for the production of interferon gamma. QuantiFERON Criteria To be considered positive a specimen should have a TB Ag minus Nil value greater than or equal to 0.35 IU/mL and in addition the TB Ag minus Nil value must be greater than or equal to 25% of the Nil value. There may be insufficient information in these values to differentiate between some negative and some indeterminate test values. QuantiFERON TB Ag Value 0.32 IU/mL QuantiFERON Nil Value 0.10 IU/mL QuantiFERON Mitogen Value >10.00 IU/mL QFT TB Ag minus Nil Value 0.22 IU/mL Interpretation: The QuantiFERON TB Gold (in Tube) assay is intended for use as an aid in the diagnosis of TB infection. Negative results suggest that there is no TB infection. In patients with high suspicion of exposure, a negative test should be repeated. A positive test indicates infection with Mycobacterium tuberculosis. Among individuals without tuberculosis infection, a positive test may be due to exposure to M. kansasii, M. szulgai or M. marinum. On the Internet, go to cdc.gov/tb for further details. TESTING PERFORMED AT [facility]. ORIGINAL REPORT ON FILE IN LAB CONTAINS ADDITIONAL TEST SITE INFORMATION. Performed By: #### L3100.0390, L3100.0460, L3100.0528, L3400.7000 #### [facility] (refer to report for specific site) refer to report for address and phone number OFFICE VISIT REPORT Observed: 12/11/2017 Status: F Source: ERIN 3:14 PM [place] [address] [address] [address] OFFICE VISIT Date of Service: 12/01/17 MR#: [id number] Acct: [id number] Patient: DEYA LAW Rep #: [id number] : 1965 Provider: Angeli Ocasio NP Age/Sex: 52/M [place] [facility] [place] Signed Intake Vital Signs12/01/17 Height 6 ft 2 in 12/01/17 Weight: 249 lb 2 oz 12/01/17 Body Mass Index (BMI) 31.9 12/01/17 Blood Pressure 115/77 12/01/17 Blood Pressure Location Lt popliteal 12/01/17 Blood Pressure Position Sitting Intake Visit Reasons: 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 Accompanied by: Self Is patient in pain?: No Allergies bupropion [From Wellbutrin] Allergy (Unknown, Verified 12/01/17 16:36) Unknown duloxetine [From Cymbalta] Allergy (Unknown, Verified 12/01/17 16:36) Unknown sertraline [From Zoloft] Allergy (Unknown, Verified 12/01/17 16:36) Unknown testosterone [From AndroGel] Allergy (Unknown, Verified 12/01/17 16:36) Unknown amoxicillin Allergy (Verified 12/01/17 16:36) Rash Medications Liothyronine Sodium 25 mcg PO DAILY 02/05/17 [History Confirmed 11/30/17] azelastine 0.15 % (205.5 mcg) nasal spray 1 spray INTRANASAL BID 12/01/17 [History Confirmed 12/01/17] [facility] Medical History Anxiety and depression (Acute) Seasonal allergies (Acute) Skin cancer (Acute) Vitamin D deficiency (Acute) Surgical History H/O left inguinal hernia repair (Acute) S/P right knee arthroscopy (Acute) Status post surgical removal of malignant neoplasm of skin (Acute) Family History Mother Hypertension Unknown Hypertension High cholesterol Thyroid disorder Cancer Social History Smoking Status: Never smoker HPI HPI Details: DEYA LAW, is a 52 M who presents to the office today for follow up of concerns related to fatigue. He did see ENT and no longer has dry mouth as he started taking an antihistamine. He continues on his c pap. He also continue to take a nap each afternoon but does not feel rested. Someone has placed hism on a T3 replacement of 25mcg daily but he does not feel better. He was instructed on giving himself testosterone injections but he did not begin this therapy. At time of visit: -Pt denies symptoms of hypertensive emergency (CP,SOB,GRANT, or blurred vision) and hypotension(dizziness or lightheadedness) -Pt denies symptoms of hypoglycemia ( sweaty, confusion, anxiety, tremor, hunger, palpitations) and hyperglycemia ( polydipsia, polyuria) -Pt denies potential medication adverse effect. Severity, modifying factors, context, and associated signs and symptoms are as follows: Thyroid pain: No Energy: Reduced Sleep: Not awakened refreshed Temp: No intolerance GI: Constipation Weight: Flucuates Eyes: No change in vision Memory: unchanged Diaphoresis: Not significant Skin: Dry Hair : Unchanged Neuro: No numbness, tingling or tremors ROS Const Constitutional: Positive for fatigue; no anorexia, body ache, chills, fever(s), frequent falls, decreased energy, malaise, night sweats, weakness, weight change, sleep problems, abnormal sleep pattern, change in appetite, other, headache(s), snoring or excessive sweating Eyes Eyes: No blurry vision, change in vision, double vision, discharge, dry eyes, bulging eyes, floaters, visual disturbances, eye pain, light sensitivity, spots in vision, tunnel vision or other ENT ENT: Positive for nasal congestion and nasal discharge; no abnormal hearing, ear pain, ear discharge, ear pressure, hearing loss, tinnitus, dizziness/vertigo, balance problems, nosebleed/epistaxis, nasal obstruction, nose pain, sinus pressure, sinus pain, post nasal drip, headache(s), facial pain, dental pain, dry mouth, bad breath, hoarseness, lip swelling, mouth lesions, mouth pain, sore throat, tongue swelling, throat swelling, other, difficulty swallowing or neck pain Resp Respiratory: No cough, change in phlegm color, chest congestion, excessive phlegm production, hemoptysis, pain on inspiration, shortness of breath, pain with cough, snoring, stridor, wheezing or other Cardio Cardiology: No chest pain at rest, chest pain with exertion, leg pain with exertion, excessive sweating, shortness of breath, dyspnea on exertion, generalized swelling, irregular heart rhythm, lightheadedness, orthopnea, radiating jaw, neck or arm pain, fast heart rate, slow heart rate, palpitations or other Gastro GI: No abdominal pain, belching, bloating, change in bowel habits, change in stool character, coffee ground emesis, constipation, cramping, diarrhea, heartburn, difficulty swallowing, feeling full early, excessive flatus, incontinent of stools, Vomiting blood/hematemesis, blood in stool, loose stools, Black,tarry stools, nausea/dyspepsia, pain with swallowing, vomiting or other Genitourinary Male: Positive for difficulty urinating and urinary hesitancy; no burning urination, painful urination, urinary incontinence, urinary frequency, urinary urgency, urinary retention, blood in urine, Frequent nighttime urination/ nocturia, post void dribbling, suprapubic fullness, side pain, sexual problems, genital lesions, genital itching, erectile dysfunction, penile discharge, difficulty with ejaculations, blood in semen, scrotal swelling, testicle lump, testicle pain or other Musc Musculoskeletal: No abnormal walking, joint pain, back pain, deformity, joint swelling, limited range of motion, loss of height, muscle cramps, muscle weakness, decreased muscle mass, body aches, neck pain, numbness, radiating pain into limb, stiffness, tingling or other Skin Skin: No acne, hair loss, change in hair, nail changes, boil, change in skin color, dry skin, redness, excessive hair growth, yellowing of the skin, lesions, itching, rash, skin pain, skin ulcer, sores, skin swelling, wounds or other Breast Breast: No other Neuro Neurology: No frequent falls, weakness, visual disturbances, abnormal hearing, headache(s), abnormal walking, numbness or tingling Psych Psychiatric: No abnormal sleep pattern, No change in appetite Endo Endocrine: Positive for fatigue; no other or excessive sweating Aller/Imm Allergy/Immunologic: No lip swelling, tongue swelling, throat swelling, wheezing or itchy eyes Exam Const General: comfortable, well groomed Nutritional Appearance: well nourished Orientation: oriented x3 HENMT Head: normal to inspection, normocephalic Ears: hearing grossly normal bilaterally Nose: external nose normal Face and sinus: normal facial exam Mouth: oral mucosae normal, moist mucous membranes Eyes General: appearance normal, both eyes and all related structures Eyelids: eyelids normal Conjunctivae: conjunctivae normal Sclera: sclerae normal Pupils: PERRL Neck Neck: normal visual inspection, full ROM Neck mass: No Resp Effort AND Inspection: normal respiratory effort, able to speak in complete sentences, symmetric chest movement Cardio Rate: regular rate Rhythm: regular rhythm Heart Sounds: S1 normal, S2 normal GI Inspection: normal to inspection Auscultation: normal bowel sounds Palpation: soft Musc Musculoskeletal: No muscle weakness Skin Lesions: no lesions Wounds: no wounds Hair: normal Neuro General: oriented x3 Cranial Nerves: CN's II-XI intact bilaterally, able to rotate head bilaterally Cognition: normal cognition Speech: speech normal Gait: normal gait Motor: muscle tone normal throughout Sensory Exam: no sensory deficits noted Extrem General: no pedal edema Psych Appearance: grossly normal Mental Status: mental status grossly normal Mood: congruent mood Affect: normal affect Speech and Movement: speech and movement normal Attitude: cooperative Thought Process: normal Thought Content: normal Judgment: judgment good Assessment AND Plan Problems 1. Chronic fatigue and malaise R53.82; R53.81 Orders Orders: Coding Level of Care Code Off vis,est,level 3 Diagnoses Chronic fatigue and malaise R53.82; R53.81 Time Spent (min) 30 12/11/17 1514 <Electronically signed by Angeli VERDIN> Date Angeli VERDIN Cosigner Signature: Date (if applicable) CC: COMPREHENSIVE METABOLIC Collected: 12/02/2017 Status: F Source: ERIN DONYA 4:38 PM [facility] [place] REPOSITORY TYPE CODE TESTS RESULT OUT OF RANGE REFERENCE UNITS LAB L501.0100 74-106 mg/dL Normal GLU 103 Result Comment: Fasting Glucose result from 100 to 125 mg/dL suggests IMPAIRED HOMEOSTASIS per A.D.A. criteria. Please note revised GLUCOSE reference range effective 2017. LAB L501.1000 7-18 mg/dL High BUN 21 LAB L501.1100 0.70-1.30 mg/dL Normal CREAT,SERUM 1.14 Result Comment: The validity of the calculated GFR AND GFRAA in patients over 70 years has not been determined. Clinical correlation is essential. LAB L501.1110 >60 mL/min Normal EST GFR 72 Result Comment: Non- GFR Calc LAB L501.1115 >60 mL/min Normal EST GFR - AA 87 Result Comment: GFR Calc LAB L501.1300 10-20 RATIO Normal BUN/CRE 18.4 LAB L501.1500 6.4-8.2 g/dL T Normal PROT 7.9 LAB L501.1800 3.2-5.0 g/dL Normal ALB 3.9 LAB L501.1950 2.2-4.2 g/dL Normal GLOB 4.0 LAB L501.2000 0.9-2.4 RATIO Normal A/G 1.0 LAB L501.2200 8.5-10.1 mg/dL CA Normal 8.8 LAB L501.4100 15-37 U/L Normal AST 15 LAB L501.4305 45-117 U/L Normal ALK P 65 LAB L501.4405 16-61 U/L Normal ALT 25 LAB L501.4600 0.20-1.00 mg/dL T Normal BILI 0.20 LAB L501.5300 136-145 mmol/L NA Normal 140 LAB L501.5600 3.5-5.1 mmol/L K Normal 3.9 LAB L501.5900 98-107 mmol/L CL Normal 104 LAB L501.6100 21.0-32.0 mmol/L Normal CO2 27.0 LAB L501.6200 5-15 Normal GAP 9 Performed By: #### L500.4050, L501.43579, L501.9520, L506.0400 #### [facility] [address] [place], [address] FREE T3 Collected: 12/02/2017 Status: F Source: [place] 4:38 PM [facility] [place] REPOSITORY TYPE CODE TESTS RESULT OUT OF RANGE REFERENCE UNITS LAB L501.92854 2.18-3.98 pg/mL Normal FREE T3 3.6 Performed By: #### L500.4050, L501.89776, L501.9520, L506.0400 #### [facility] [address] [place], [address] THYROID STIM HORMONE Collected: 12/02/2017 Status: F Source: ERIN (TSH) 4:38 PM [facility] [place] REPOSITORY TYPE CODE TESTS RESULT OUT OF RANGE REFERENCE UNITS LAB L501.9520 0.358-3.74 uIU/mL Low TSH 0.10 Performed By: #### L500.4050, L501.05557, L501.9520, L506.0400 #### [facility] [address] [place], [address] T4 FREE DIRECT Collected: 12/02/2017 Status: F Source: ERIN 4:38 PM [facility] [place] REPOSITORY TYPE CODE TESTS RESULT OUT OF REFERENCE UNITS RANGE LAB L506.0400 0.76-1.46 ng/dL Low T4 FREE 0.53 DIRECT Performed By: #### L500.4050, L501.84623, L501.9520, L506.0400 #### [facility] [address] [place], [address] VITAMIN B12 Collected: 12/02/2017 Status: F Source: ERIN 4:38 PM [facility] [place] REPOSITORY TYPE CODE TESTS RESULT OUT OF RANGE REFERENCE UNITS LAB L503.0105 211-911 pg/mL Normal Vitamin B12 772 Performed By: #### L503.0105 #### [facility] [address] [place], [address] #### L3410.2400 #### [facility] (refer to report for specific site) refer to report for address and phone number CELIAC DISEASE Collected: 12/02/2017 Status: F Source: ERIN PROFILE 4:38 PM [facility] [place] REPOSITORY TYPE CODE TESTS RESULT OUT OF RANGE REFERENCE UNITS LAB L3200.1400 90-386 mg/dL Normal IMMUNO A 218 Result Comment: Performed at: [facility] [id number] Wood Chopper: Adonis Tomlinson PhD, Phone: [phone] LAB V8079.4360 0-3 U/mL Normal tTG IGA <2 Result Comment: Negative 0 - 3 Weak Positive 4 - 10 Positive >10 Tissue Transglutaminase (tTG) has been identified as the endomysial antigen. Studies have demonstr- ated that endomysial IgA antibodies have over 99% specificity for gluten sensitive enteropathy. LAB L3410.2975 Negative Normal ENDOMYSIAL IGA Negative Performed By: #### L503.0105 #### [facility] [address] [place], [address] #### L3410.2400 #### [facility] (refer to report for specific site) refer to report for address and phone number CBC W/DIFF, AUTOMATED Collected: 10/31/2017 Status: F Source: [place] 4:46 PM [facility] [place] REPOSITORY TYPE CODE TESTS RESULT OUT OF RANGE REFERENCE UNITS LAB L100.1000 4.4-11.0 K/mm3 Normal WBC 6.6 LAB L100.1200 4.6-6.2 M/mm3 Normal RBC 4.78 LAB L100.1300 13.0-16.5 g/dl Normal HGB 14.8 LAB L100.1400 40-54 % Normal HCT 42.7 LAB L100.1500 80-94 fL Normal MCV 89.3 LAB L100.1600 27.0-32.0 pg Normal MCH 31.0 LAB L100.1700 32-36 g/gl Normal MCHC 34.7 LAB L100.1810 11.6-14.6 % Normal RDW CV 12.6 LAB L100.1820 35.1-43.9 fl Normal RDW SD 41.0 LAB L100.1900 150-450 K/mm3 Normal PLT 228 LAB L100.2000 6.2-12.0 fl Normal MPV 11.1 LAB L100.2100 47-70 % Normal NEUT% 61.8 LAB L100.2200 19-41 % Normal LY% 25.1 LAB L100.2300 0-10 % High MONO% 11.2 LAB L100.2400 0-5 % Normal EO% 1.4 LAB L100.2500 0-1 % Normal BASO% 0.3 LAB L100.2550 0.0-0.9 % Normal IM GRAN % 0.200 Result Comment: IG% - Immature Granulocytes (promyelocytes, myelocytes and metamyelocytes) > 1% indicates that a LEFT SHIFT is Present. LAB L100.2620 2.0-7.7 X10 3/uL Normal Absolute Neut 4.1 LAB L100.2720 0.83-4.51 X10 3/ul Normal Absolute Lymph 1.65 Performed By: #### L100.0100 #### [facility] [address] [place], [address] ABDOMEN/PELVIS WITHOUT Observed: 10/25/2017 Status: F Source: [place] CONT 5:35 PM [facility] [place] REPOSITORY [facility] Imaging Services [address] [place] [address] Abdomen/Pelvis without Cont MR#: [id number] Acct: [id number] Name: DEYA LAW Rep #: [id number] : 1965 M 52 From: Miquel Candelario DO PCP: Yaw March MD Status: REG CLI Study: Abdomen/Pelvis without Cont Date of Exam: 10/25/17 Exam# [id number] Ordering Dr: Roberth Amezquita MD STUDY: CT ABDOMEN AND PELVIS WITHOUT CONTRAST REASON FOR EXAM: Male, 52 years old. Microhematuria RADIATION DOSAGE (If Supplied By Facility): CTDIvol = ( 14.68 ) mGy, DLP = ( 812.04 ) mGycm TECHNIQUE: Transaxial images were obtained from the dome of the diaphragm to the symphysis pubis without oral contrast, and without intravenous contrast. Sagittal and coronal images were reconstructed. Individualized dose optimization techniques were used for this CT. COMPARISON: February 05, 2017. FINDINGS: The visualized lung bases are unremarkable. The visualized portions of the heart are within normal limits. Normal liver. Normal gallbladder and extrahepatic biliary system. Normal spleen. Normal pancreas. Normal bilateral adrenal glands. Normal right kidney. Probable cortical cyst lesion measuring 1 cm with rim calcification is noted in the left kidney. No renal stones or hydronephrosis bilaterally. Normal visualized stomach. Normal small intestine. Mild diverticulosis of the colon. The appendix is visualized and appears normal. Calcified abdominal aorta. Normal inferior vena cava. Subcentimeter nodes in the retroperitoneum. Normal urinary bladder. The prostate is 4.6 x 5.8 cm. Normal abdominal wall. Normal osseous structures. CT/Abdomen/Pelvis without Cont IMPRESSION: Slightly prominent prostate. No renal stones or hydronephrosis bilaterally. Probable left renal cortical cystic lesion with peripheral calcification. Colonic diverticulosis. Electronically Signed: Miquel Candelario DO at 19:50 EDT Tel [phone], Service support , CC: Matthew March MD; Roberth Amezquita MD Cable Rigger: Signed PSA,TOTAL - ANNUAL Collected: 10/05/2017 Status: F Source: ERIN SCREEN 10:09 AM [facility] [place] REPOSITORY TYPE CODE TESTS RESULT OUT OF RANGE REFERENCE UNITS LAB L501.9910 0.00-4.00 ng/mL Normal PSA,TOT 1.47 SCREEN Result Comment: This test was performed using the TPSA assay method for the [employer] chemistry system. Values obtained with different assay methods cannot be used interchangably. When changing PSA assays in the course of monitoring a patient, additional sequential testing should be carried out to confirm baseline values. Performed By: #### L501.9910 #### [facility] [place], [address] ALLERGIES ALLERGIES DATE TYPE / CODE NAME / CODE REACTION SEVERITY SOURCE 12/01/2017 Drug amoxicillin/ Rash Unknown [facility] Allergy/4160 [id number](R Hospital [facility](SNOMED XNORM) Repository CT) 12/01/[address] [facility] Allergy/4160 /[id number]( Hospital [address](SNOMED RXNORM) Repository CT) 12/01/2017 Drug bupropion/F0 Unknown Unknown [facility] Allergy/4160 [id number]([place] [address](SNOMED ORM) Repository CT) 12/01/2017 Drug sertraline/F Unknown Unknown [facility] Allergy/4160 [id number]([place] [address](SNOMED NORM) Repository CT) 12/01/2017 Drug duloxetine/F Unknown Unknown Erin [facility] Allergy/4160 [id number](RX Hospital [address](SNOMED NORM) Repository CT) ENCOUNTERS ENCOUNTERS ADMIT/DISCHARGE ACCOUNT ADMITTING ENCOUNTER LOCATION SOURCE NUMBER CLASS 06/19/2018 [id number] Ambulatory Herod Herod 1 [facility] ing:LAB Repository 12/26/2017 [id number] Ambulatory Erin Herod 5 [facility] ing:LAB Repository 12/26/2017 [id number] Ambulatory Herod Erin 0 [facility] ing:LAB.FUTUR Repository E 12/02/2017 [id number] Ambulatory Erin Erin 5 [facility] ing:LAB Repository 12/01/2017/ [id number] Ambulatory BMSBuilding:B Erin 8 [facility] 10/31/2017 [id number] Ambulatory Herod Herod 8 [facility] ing:LAB Repository 10/25/2017 [id number] Ambulatory Herod Herod 9 [facility] ing:CT Repository 10/05/2017 [id number] Ambulatory Herod Erin 5 [facility] ing:LAB Repository PAYERS PAYERS ENCOUNTER GUARANTOR PAYER SUBSCRIBER SOURCE 06/19/2018 DEYA Kan Primary Insurance:UMR DEYA Kan Erin [id number] [place] [id number] [facility] Number: [id number], [place] [id number] Repository 1987[address]Zsp: ([phone]) Date:2351-27-88OF [phone] [facility] [address] [address]IC: 06/19/2018 Secondary NOT GIVENUNK Herod Insurance:SELF PAY [facility] Number: Effective Repository Date:2018-06-14 12/26/2017 DEYA Kan Primary Insurance:[facility] DEYA Kan Erin [id number] V[place] [id number] HospitalB[facility] Number: [id number], [place] [id number] Repository [address]Zao: ([phone]) Date:4731-88-73AN [phone] (HP) [address] [place] [phone]: 12/26/2017 Secondary NOT GIVENUNK Erin Insurance:SELF PAY [facility]: Effective Repository Date:2017-12-26 12/26/2017 DEYA Kan Primary Insurance:UMR DEYA Kan Erin [id number] [place] [id number] RITTENHOUSEDOB: Community NORMANDY Number: [id number], [place] [id number] Repository [address]Wpt: [phone]) Date:9209-78-91CC [phone] () [address] [place] [phone]: 12/26/2017 Secondary NOT GIVENUNK Herod Insurance:SELF PAY [facility] Number: Effective Repository Date:2017-12-26 12/02/2017 DEYA Kan Primary Insurance:[facility] DEYA Kan Erin [id number] VJ [id number] RITTENHOUSEDOB: [facility] Number: [id number], [place] [id number] Repository [address]Uvf: 330) Date:8255-97-47QX [phone] () [address] [place] [phone]: 12/02/2017 Secondary NOT GIVENUNK Erin Insurance:SELF PAY [facility] Number: Effective Repository Date:2017-12-02 12/01/2017 DEYA Kan Primary Insurance:R DEYA Kan Erin [id number] VJ [id number] RITTENHOUSEDOB: [facility] NORMANDY Number: [id number], [place] [id number] Repository [address]Tcd: [phone]) Date:6455-42-61SC [phone] (HP) [address] [place] [phone]: 12/01/2017 Secondary NOT GIVENUNK Herod Insurance:SELF PAY [facility]: Effective Repository Date:2017-12-01 10/31/2017 DEYA Kan Primary Insurance:UMR DEYA Kan Herod [id number] VJ [id number] RITTENHOUSEDOB: Community [place]AND[place] Number: [id number], [place] [id number] Repository [address]Lhb: ([phone]) Date:8523-76-40UC [phone] (HP) [address] [place] [phone]: 10/31/2017 Secondary NOT GIVENUNK Erin Insurance:SELF PAY [facility] Number: Effective Repository Date:2017-10-31 10/25/2017 EDYA Kan Primary Insurance:UMR DEYA Kan Erin [id number] VJ [id number] RITTENHOUSEDOB: [facility] NORMANDY Number: [id number], [place] [id number] Repository [address]Jmc: ([phone]) Date:9075-30-08SB [phone] (HP) [address] [place] [phone]: 10/25/2017 Secondary NOT GIVENUNK Erin Insurance:SELF PAY [facility] Number: Effective Repository Date:2017-10-20 10/05/2017 DEYA Kan Primary Insurance:UMR DEYA Kan Herod [id number] [id number] RITTENHOUSEDOB: [facility] HONORIO LNAPT Number: [id number] [id number] Repository [id number]: ([phone]) Date:[id number] [phone] (HP) [address] [place] [id number]: 10/05/2017 Secondary NOT GIVENUNK Erin Insurance:SELF PAY [facility] Number: Effective Repository Date:2017-10-05
== END ==
PROVIDERS: Family Provider Family Medicine; PCP Family Medicine; Referring Provider Family Medicine; Visit Provider Family Medicine
DX: R53.83 Other fatigue (principal)
CPT/HCPCS: 36415; 82951; 82952

== ENCOUNTER → 2018-10-09 16:14 | Outpatient (CLI) | payer OTHER, SELFPAY ==
[2017-12-01 16:40] VITALS: BMI 31.9
[2018-10-09 17:21] LABS: Absolute Lymphocyte Count 1.58 X10^3/ul (0.83-4.51); Absolute Neutrophil Count 2.7 X10^3/uL (2.0-7.7); Basophil# 0.02 X10^3/uL; Basophil% 0.4 % (0-1); Eosinophil# 0.08 X10^3/uL; Eosinophils% 1.6 % (0-5); Hemoglobin 14.9 g/dl (13.0-16.5); Lymphocyte # 1.58 X10^3/ul (4.0); Lymphocyte % 31.9 % (19-41); Mean Corp Hgb Conc 33.9 g/gl (32-36); Mean Corpuscular Hgb 30.7 pg (27.0-32.0); Mean Corpuscular Volume 90.7 fL (80-94); Mean Platelet Vol. 11.3 fl (6.2-12.0); Monocyte# 0.61 X10^3/uL; Monocyte% 12.3 % (0-10); Neutrophil # 2.66 X10^3/uL (2.7-7.7); Neutrophil % 53.8 % (47-70); Platelet Count 220 K/mm3 (150-450); RBC Distribution Width CV 12.7 % (11.6-14.6); RBC Distribution Width SD 42.4 fl (35.1-43.9); Red Blood Count 4.85 M/mm3 (4.6-6.2)
[2018-10-09 17:26] LABS: POSITIVE COUNT NO; POSITIVE DIFFERENTIAL NO; POSITIVE MORPHOLOGY NO
[2018-10-09 17:38] LABS: AST(SGOT) 20 U/L (15-37); Alanine Aminotransfer ALT/SGPT 28 U/L (16-61); Albumin, Serum 3.9 g/dL (3.2-5.0); Alkaline Phosphatase 51 U/L (45-117); Globulin 3.4 g/dL (2.2-4.2); Protein, Total 7.3 g/dL (6.4-8.2)
== END ==
PROVIDERS: Family Provider Family Medicine; PCP Family Medicine; Referring Provider Dermatology; Visit Provider Dermatology
DX: L40.0 Psoriasis vulgaris (principal); Z79.899 Other long term (current) drug therapy
CPT/HCPCS: 36415; 80076; 85025

== ENCOUNTER → 2020-10-28 09:29 | Outpatient (CLI) | payer MEDICAID, SELFPAY ==
[2020-10-28 08:25] VITALS: BMI 31.6
== END ==
PROVIDERS: PCP Family Medicine; Referring Provider Psychiatry & Neurology Neurology; Visit Provider Psychiatry & Neurology Neurology
DX: G47.419 Narcolepsy without cataplexy (principal)
CPT/HCPCS: 36415

== ENCOUNTER → 2020-11-07 20:00 | Outpatient (CLI) | payer MEDICAID, SELFPAY ==
[2020-10-14 08:15] VITALS: BMI 31.0
== END ==
PROVIDERS: PCP Family Medicine; Referring Provider Nurse Practitioner Acute Care; Visit Provider Nurse Practitioner Acute Care
DX: G47.33 Obstructive sleep apnea (adult) (pediatric) (principal)
CPT/HCPCS: 95811

== ENCOUNTER → 2021-02-12 16:06 | Outpatient (CLI) | payer MEDICAID, SELFPAY ==
[2021-02-12 15:42] VITALS: BMI 31.3
[2021-02-12 18:12] LABS: Amphetamine Urine VISTA POSITIVE (<1000 ng/mL); Barbiturate Urine VISTA NEGATIVE (< 200 ng/mL); Benzodiazepine Urine VISTA NEGATIVE (< 200 ng/mL); Cocaine Urine VISTA NEGATIVE (< 300 ng/mL); Ecstacy Urine VISTA NEGATIVE (< 500 ng/mL); Methadone Urine VISTA NEGATIVE (< 300 ng/mL); PCP Urine VISTA NEGATIVE (< 25 ng/mL); THC Urine VISTA NEGATIVE (< 50 ng/mL); Vista UDS pH Range 5
== END ==
PROVIDERS: PCP Family Medicine; Referring Provider Psychiatry & Neurology Neurology; Visit Provider Psychiatry & Neurology Neurology
DX: G47.419 Narcolepsy without cataplexy (principal)
CPT/HCPCS: 80307

== ENCOUNTER 2021-09-28 10:43 | Outpatient (CLI) | payer MEDICAID, SELFPAY ==
[2021-09-28 12:00] LABS: Absolute Neutrophil Count 3.2 X10^3/uL (2.0-7.7); Basophil# 0.04 X10^3/uL; Basophil% 0.6 % (0-1); Eosinophil# 0.13 X10^3/uL; Hematocrit 44.1 % (40-54); Hemoglobin 14.7 g/dL (13.0-16.5); Lymphocyte % 36.6 % (19-41); Mean Corp Hgb Conc 33.3 g/dL (32-36); Mean Corpuscular Hgb 30.1 pg (27.0-32.0); Mean Corpuscular Volume 90.2 fL (80-94); Monocyte# 0.75 X10^3/uL; Monocyte% 11.5 % (0-10); NRBC Flagged by Analyzer 0 % (0-5); Neutrophil # 3.22 X10^3/uL (2.7-7.7); Neutrophil % 49.1 % (47-70); Platelet Count 267 K/mm3 (150-450); RBC Distribution Width SD 42.7 fl (35.1-43.9); Red Blood Count 4.89 M/mm3 (4.6-6.2); White Blood Count 6.6 K/mm3 (4.4-11.0)
[2021-09-28 12:25] LABS: ALB/GLOB Ratio 1.2 RATIO (0.9-2.4); AST(SGOT) 20 U/L (15-37); Alanine Aminotransfer ALT/SGPT 36 U/L (16-61); Albumin, Serum 3.7 g/dL (3.2-5.0); Alkaline Phosphatase 49 U/L (45-117); Anion Gap 5 (5-15); BUN 19 mg/dL (7-18); BUN/Creat Ratio 16.2 RATIO (10-20); Chloride 109 mmol/L (98-107); Creatinine, Serum 1.17 mg/dL (0.70-1.30); EST Glomerular Filtration Rate 69 mL/min (>60); Est Glom Filt Rate - Afr Amer 83 mL/min (>60); Globulin 3.2 g/dL (2.2-4.2); Glucose 101 mg/dL (74-106); PSA,Total - Annual Screen 1.21 ng/mL (0.00-4.00); Potassium 3.7 mmol/L (3.5-5.1); Protein, Total 6.9 g/dL (6.4-8.2); Sodium Level 140 mmol/L (136-145)
== END 2021-09-28 23:59 | disposition home or self-care (01) ==
PROVIDERS: PCP Family Medicine; Visit Provider Family Medicine
DX: R35.1 Nocturia (principal); R10.13 Epigastric pain; Z12.5 Encounter for screening for malignant neoplasm of prostate
CPT/HCPCS: 84153; 36415; 80053; 85025; 87086; G0103

== ENCOUNTER → 2022-01-29 | Outpatient (CLI) | payer OTHER, MEDICAID, SELFPAY ==
[2022-01-29 08:10] LABS: Absolute Lymphocyte Count 1.65 X10^3/uL (0.83-4.51); Basophil# 0.03 X10^3/uL; Basophil% 0.6 % (0-1); Eosinophil# 0.09 X10^3/uL; Eosinophils% 1.7 % (0-5); Hemoglobin 15.4 g/dL (13.0-16.5); Lymphocyte # 1.65 X10^3/ul (0.83-4.51); Lymphocyte % 30.4 % (19-41); Mean Corp Hgb Conc 33.5 g/dL (32-36); Mean Corpuscular Hgb 30.9 pg (27.0-32.0); Mean Corpuscular Volume 92.4 fL (80-94); Monocyte# 0.62 X10^3/uL; Monocyte% 11.4 % (0-10); NRBC Flagged by Analyzer 0 % (0-5); Neutrophil # 3.02 X10^3/uL (2.7-7.7); Neutrophil % 55.7 % (47-70); Platelet Count 241 K/mm3 (150-450); RBC Distribution Width CV 12.6 % (11.6-14.6); RBC Distribution Width SD 42.8 fl (35.1-43.9); Red Blood Count 4.98 M/mm3 (4.6-6.2); White Blood Count 5.4 K/mm3 (4.4-11.0)
[2022-01-29 08:44] LABS: ALB/GLOB Ratio 1.1 RATIO (0.9-2.4); AST(SGOT) 25 U/L (15-37); Alanine Aminotransfer ALT/SGPT 33 U/L (16-61); Albumin, Serum 3.8 g/dL (3.2-5.0); Alkaline Phosphatase 49 U/L (45-117); Anion Gap 5 (5-15); BUN 17 mg/dL (7-18); BUN/Creat Ratio 13.8 RATIO (10-20); Calcium,Total 8.6 mg/dL (8.5-10.1); Chloride 105 mmol/L (98-107); Cholesterol 175 mg/dL (200); Creatinine, Serum 1.23 mg/dL (0.70-1.30); EST Glomerular Filtration Rate 65 mL/min (>60); Est Glom Filt Rate - Afr Amer 78 mL/min (>60); Globulin 3.4 g/dL (2.2-4.2); Glucose 104 mg/dL (74-106); High Density Lipoprotein 44 mg/dL; Potassium 4.3 mmol/L (3.5-5.1); Protein, Total 7.2 g/dL (6.4-8.2); Sodium Level 139 mmol/L (136-145); Triglycerides 65 mg/dL; Very Low Density Lipoprotein 13 mg/dL (5-40)
[2022-02-02 13:08] LABS: QNTFERON TB Mitogen Value > 10.00 IU/mL (.); QNTFERON TB Nil Value 0.04 IU/mL (.); QNTFERON TB1+ Ag Value 0.07 IU/mL (.); QNTFERON TB2+ Ag Value 0.04 IU/mL (.)
[2022-02-04 14:57] LABS: QNTIFERON TB Positive Criteria Negative (Negative)
== END | disposition home or self-care (01) ==
PROVIDERS: PCP Family Medicine
DX: L40.0 Psoriasis vulgaris (principal)
CPT/HCPCS: 36415; 80053; 80061; 85025; 86480

== ENCOUNTER → 2022-06-28 | Outpatient (CLI) | payer OTHER, MEDICAID, SELFPAY ==
[2022-06-28 15:07] LABS: Hematocrit 46.1 % (40-54); Hemoglobin 15.3 g/dL (13.0-16.5); Mean Corp Hgb Conc 33.2 g/dL (32-36); Mean Corpuscular Hgb 30.4 pg (27.0-32.0); Mean Corpuscular Volume 91.7 fL (80-94); Mean Platelet Vol. 11.5 fl (6.2-12.0); Platelet Count 275 K/mm3 (150-450); RBC Distribution Width CV 12.7 % (11.6-14.6); RBC Distribution Width SD 42.5 fl (35.1-43.9); Red Blood Count 5.03 M/mm3 (4.6-6.2); White Blood Count 5.1 K/mm3 (4.4-11.0)
[2022-06-28 15:23] LABS: Vitamin B12 622 pg/mL (211-911); Vitamin D,25 Hydroxy 50.2 ng/mL
[2022-06-28 15:32] LABS: ALB/GLOB Ratio 1.1 RATIO (0.9-2.4); AST(SGOT) 20 U/L (15-37); Alanine Aminotransfer ALT/SGPT 37 U/L (16-61); Albumin, Serum 3.6 g/dL (3.2-5.0); Alkaline Phosphatase 59 U/L (45-117); Anion Gap 7 (5-15); BUN 17 mg/dL (7-18); BUN/Creat Ratio 15.5 RATIO (10-20); Calcium,Total 8.6 mg/dL (8.5-10.1); Chloride 106 mmol/L (98-107); EST Glomerular Filtration Rate 73 mL/min (>60); Est Glom Filt Rate - Afr Amer 89 mL/min (>60); Free T3 2.6 pg/mL (2.18-3.98); Globulin 3.4 g/dL (2.2-4.2); Glucose 81 mg/dL (74-106); Iron 100 ug/dL (65-175); Potassium 4.1 mmol/L (3.5-5.1); Sodium Level 142 mmol/L (136-145); T4 Free Direct 0.92 ng/dL (0.76-1.46); Thyroid Stim Hormone (TSH) 0.77 uIU/mL (0.358-3.74)
== END | disposition home or self-care (01) ==
PROVIDERS: PCP Family Medicine; Visit Provider Family Medicine
DX: R53.83 Other fatigue (principal)
CPT/HCPCS: 36415; 80053; 82306; 82533; 82607; 83540; 84403; 84439; 84443; 84481; 85027